=== PATIENT | female | born 1990 | race Two or more races ===

== ENCOUNTER 2024-05-08 16:04 | Inpatient (IN) | payer OTHER ==
[~2024-05-08] VITALS: Ht 167.6 cm; Wt 99.8 kg
[2024-05-08 16:14] VITALS: BP 101/65
[2024-05-08 17:20] LABS: HEMATOCRIT 33.1 % (36.0-45.00); HEMOGLOBIN 11.1 g/dL (12.0-15.00); MEAN CORPUSCULAR HEMOGLOBIN 29.8 pg (27.00-32.0); MEAN CORPUSCULAR HGB CONC 33.4 g/dl (32.0-36.0); PLATELET COUNT 202 K/uL (150-450); RED BLOOD COUNT 3.72 M/uL (4.00-6.00); RED CELL DISTRIBUTION WIDTH 12.5 % (11.5-14.5)
[2024-05-08 17:21] LABS: URINE APPEARANCE Clear; URINE BILIRRUBIN Negative (NEGATIVE); URINE BLOOD Negative; URINE COLOR Yellow; URINE GLUCOSE Negative (NEGATIVE); URINE KETONE Negative (NEGATIVE); URINE LEUKOCYTE Small; URINE NITRATE Negative; URINE PROTEIN Trace (NEGATIVE)
[2024-05-08 17:25] LABS: URINE BACTERIA 1209.1 uL (0.0-1933); URINE RBC 43.3 uL (0.0-20.8); URINE WBC 30.3 uL (0.0-23.2)
[2024-05-08 17:50] LABS: ALBUMIN 2.8 gm/dL (3.4-5.0); BILIRUBIN TOTAL 0.36 mg/dL (0.3-1.2); CALCIUM 8.8 mg/dL (8.5-10.1); CREATININE SERUM 0.67 mg/dL (0.55-1.02); GFR 101.36; GLOBULINA 3.6 G/DL (2.4-3.5); POTASSIUM 4.42 mEq/L (3.5-5.1); TOTAL PROTEIN 6.4 gm/dL (6.4-8.2)
[2024-05-08 18:04] LABS: INR < 0.93; PARTIAL THROMBOPLASTIN TIME 24.9 SECONDS (22.0-34.0)
[2024-05-08] MEDS ORDERED: MISOPROSTOL 25 MCG TABLET ONE (18:05)
[2024-05-08] MEDS ORDERED: MISOPROSTOL 25 MCG TABLET VAG ONE (18:10)
[2024-05-08] MEDS ORDERED: hydrOXYzine PAMOATE 50 MG CAPSULE PO PRN (18:30)
[2024-05-08 18:37] LABS: URINE CAST 1.03 uL (0.0-1.40)
[2024-05-08 19:30] VITALS: BP 126/77
[2024-05-08 23:27] VITALS: BP 120/73
[2024-05-09 03:30] VITALS: BP 115/78
[2024-05-09 07:38] VITALS: BP 130/81
[2024-05-09] MEDS ORDERED: OXYTOCIN 20 UNITS/500ML RL PIGGYBAG IV ONE (07:38)
[2024-05-09] MEDS ORDERED: OXYTOCIN 500 ML IV SCH (08:00)
[2024-05-09] MEDS ORDERED: RINGERS SOLUTION,LACTATED 1,000 ML IV SCH (08:45)
[2024-05-09] MEDS ORDERED: OXYTOCIN 1,000 ML IV SCH ×2 (08:45→17:00)
[2024-05-09] MEDS ORDERED: SIMETHICONE 125 MG CAPSULE PO SCH (09:00)
[2024-05-09 12:51] VITALS: BP 122/68
[2024-05-09] MEDS ORDERED: MORPHINE SULFATE 4 MG/ML VIAL IV ONE (14:45)
[2024-05-09] MEDS ORDERED: CHLORHEXIDINE GLUCONATE 120 ML BOTTLE TOP ONE (15:18)
[2024-05-09] MEDS ORDERED: OXYTOCIN 20 UNITS/1000ML RL PIGGYBAG IV ONE (15:18)
[2024-05-09] MEDS ORDERED: ERYTHROMYCIN BASE OPHT 1GM EACH TUBE OP ONE ×2 (15:18→17:30)
[2024-05-09] MEDS ORDERED: LIDOCAINE HCL 1% 10ML VIAL ONE ×2 (15:19→16:26)
[2024-05-09 15:27] VITALS: BP 141/78
[2024-05-09] MEDS ORDERED: NALOXONE HCL 0.4 MG/ML AMPUL ONE (16:11)
[2024-05-09] MEDS ORDERED: IBUprofen 400 MG TABLET PO PRN (17:00)
[2024-05-09] MEDS ORDERED: CHLORHEXIDINE GLUCONATE 120 ML BOTTLE TOP SCH (17:00)
[2024-05-09] MEDS ORDERED: LIDOCAINE HCL 1% 10ML VIAL PERCUT ONE (17:30)
[2024-05-09 18:53] VITALS: BP 121/76
[2024-05-10 00:05] VITALS: BP 105/69
[2024-05-10 08:00] VITALS: BP 100/63
[2024-05-10 17:43] VITALS: BP 122/79
[2024-05-10 23:43] VITALS: BP 118/78
[2024-05-11] MEDS ORDERED: NAPR500T14 PO (07:31)
[2024-05-11 08:00] VITALS: BP 101/63
== END 2024-05-11 15:53 | disposition home or self-care (01) | DRG 807 ==
LOC: OB/GYN 16:04 → LDR 16:04 → OB/GYN 05-09 17:51
PROVIDERS: ADMIT Obstetrics & Gynecology; ATTEND Obstetrics & Gynecology
PROC: 10E0XZZ Delivery of Products of Conception, External Approach (ICD-10-PCS; principal; 2024-05-08)
PROC: 0W8NXZZ Division of Female Perineum, External Approach (ICD-10-PCS; 2024-05-08)
PROC: 4A1HXCZ Monitoring of Products of Conception, Cardiac Rate, External Approach (ICD-10-PCS; 2024-05-08)
DX: O69.81X0 Labor and delivery complicated by cord around neck, without compression, not applicable or unspecified (principal); Z37.0 Single live birth; Z3A.39 39 weeks gestation of pregnancy